=== PATIENT | female | born 1990 | race Hispanic/Latino ===

== ENCOUNTER 2020-08-27 17:51 | Emergency (ER) | payer SELFPAY ==
[~2020-08-27] VITALS: Ht 165.1 cm; Wt 95.3 kg
[2020-08-27] MEDS ORDERED: FERROUS SULFAT325 M1 PO (18:12)
[2020-08-27] MEDS ORDERED: BELLADONNA ALK/PHENOBARBITAL 5 ML UDC ONE (18:54)
[2020-08-27] MEDS ORDERED: LIDOCAINE VISC 2% SOLN 15 ML UDC ONE (18:54)
[2020-08-27] MEDS ORDERED: MAGNESIUM/ALUMINUM/SIMETHICONE 30 ML UDC ONE (18:54)
[2020-08-27] MEDS ORDERED: DONNATAL/LIDOCAINE/MAALOX 30 ML SUSP PO ONE (19:00)
[2020-08-27] MEDS ORDERED: FAMOTIDINE40 MG PO (19:24)
== END 2020-08-27 19:39 | disposition home or self-care (01) ==
LOC: FSED 18:00
DX: R10.13 Epigastric pain (principal); R07.89 Other chest pain; R05 Cough; R11.2 Nausea with vomiting, unspecified; K21.9 Gastro-esophageal reflux disease without esophagitis; E66.9 Obesity, unspecified; F17.210 Nicotine dependence, cigarettes, uncomplicated
CPT/HCPCS: 93005; 99283